=== PATIENT | male | born 1960 | race Caucasian/White ===

== ENCOUNTER 2018-06-02 08:42 | Day surgery (SDC) | payer OTHER ==
[2018-05-30 14:16] VITALS: BMI 30.5
[2018-06-02] MEDS ORDERED: MIDAZOLAM HCL 2 MG/2 ML SINGLE DOSE VIAL ONE (11:12)
[2018-06-02] MEDS ORDERED: PROPOFOL 20 ML ONE (11:12)
[2018-06-02] MEDS ORDERED: IBUPROFEN 800 MG/8 ML IJ IVPB PRN (12:12)
[2018-06-02] MEDS ORDERED: oxyCODONE HCL 5 MG TABLET PO PRN (12:12)
[2018-06-02] MEDS ORDERED: ONDANSETRON 4 MG/2 ML VIAL IVPUSH PRN (12:12)
[2018-06-02] MEDS ORDERED: LACTATED RINGERS SOLUTION 1,000 ML IV SCH (12:15)
--- NOTE | 2018-06-02 14:11 | OP ---
Operative Note - Note: Operative Date: 06/02/18 Pre-Operative Diagnosis: bulbous urethral stricture Operation: cystoscopy/laser urethrotomy/urethral dilation Findings: high grade bulbous urethral stricture Post-Operative Diagnosis: Same as Pre-op Surgeon: Fareed Haddad Anesthesia: General Drains & Tubes with Location: 20 malian silastic catheter
[2018-06-02 15:27] VITALS: BP 108/70; PULSE 60
[2018-06-02 18:00] VITALS: TEMP 97.7
--- NOTE | 2018-06-02 21:50 | OP ---
DATE OF OPERATION: 06/02/2018 PREOPERATIVE DIAGNOSIS: Bulbous urethral stricture. POSTOPERATIVE DIAGNOSIS: Bulbous urethral stricture. PROCEDURE: Cystoscopy, laser urethrotomy, and urethral dilation. ATTENDING: Fareed Mclaughlin MD ANESTHESIA: General. DESCRIPTION OF OPERATION: Patient was brought in the operating room and placed in supine position on the operating room table. Anesthesia was administered as was preoperative antibiotics. The patient was then placed in dorsal lithotomy position and prepped and draped in the usual sterile manner. Cystoscopy was performed, and a high-grade, bulbous urethral stricture was noted. A wire was necessary to pass into the bladder in order to allow for guidance of the urethral passage. With the wire passed safely into the bladder, the holmium laser was utilized to make an incision at the 12 o'clock position. This relaxed incision allowed for subsequent dilation with sounds to 22-British. Cystoscopy was then performed. There was care as not to injure the muscle at the level of the sphincter in order to avoid incontinence. The patient has had recurrent urethral stricture, and discussion has taken place for the patient to start performing daily catheterizations in order to maintain the patency of the urethra. There were no complications noted. The patient tolerated the procedure very well. A 20-British Silastic catheter was left in place. The disposition of the patient was to the recovery room. Elba [id number]
== END 2018-06-02 16:50 | disposition home or self-care (01) ==
LOC: JASU-SURG 08:42
PROVIDERS: ATTEND Urology
PROC: 0TND8ZZ Release Urethra, Via Natural or Artificial Opening Endoscopic (ICD-10-PCS; principal; 2018-06-02 10:00)
DX: N35.8 Other urethral stricture (principal)
CPT/HCPCS: 94760